=== PATIENT | male | born 1995 | race Caucasian/White ===

== ENCOUNTER 2016-12-17 17:58 | Emergency (ER) | payer OTHER ==
[~2016-12-17] VITALS: Ht 165.1 cm; Wt 61.2 kg
[~2016-12-17 17:58] MED LIST: IBUPROFEN 600600 M1 PO; KEFLEX500 MG PO; NORCO 5-325 TA1 EACH PO; TRAMADOL 50 MG50 MG PO
[2016-12-17] MEDS ORDERED: KEFLEX500 MG PO (19:28)
[2016-12-17 19:30] VITALS: BP 93/47
== END 2016-12-17 19:37 | disposition home or self-care (01) ==
LOC: ER 17:58
DX: S51.811A Laceration without foreign body of right forearm, initial encounter (principal); J45.909 Unspecified asthma, uncomplicated; W25.XXXA Contact with sharp glass, initial encounter; Y93.89 Activity, other specified; Y92.89 Other specified places as the place of occurrence of the external cause; Y99.8 Other external cause status

== ENCOUNTER 2019-01-20 05:21 | Inpatient (IN) | payer OTHER ==
[~2019-01-20] VITALS: Ht 175.3 cm; Wt 61.2 kg
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
[2019-01-20 05:54] VITALS: BP 110/59
[2019-01-20 06:43] LABS: ABSOLUTE NEUTROPHILS 11.7 thou/uL (1.4-8.2); BASOPHILS 0.7 % (0.0-2.0); EOSINOPHILS 0.4 % (0.0-3.0); HEMATOCRIT 43.6 % (42.0-52.0); HEMOGLOBIN 14.5 gm/dL (14.0-18.0); LYMPHOCYTES 18.6 % (24.0-44.0); MCH 30.5 pg (26.0-34.0); MCHC 33.3 g/dL (28.0-37.0); MCV 91.5 fL (80.0-100.0); PLATELET COUNT 384 thou/uL (150-400); POLYS 72.3 % (36.0-66.0); RBC 4.77 mil/uL (4.50-6.00); RDW 13.8 % (10.5-14.5); WBC 16.2 thou/uL (4.0-11.0)
[2019-01-20 06:48] LABS: AMP/METHAMP POSITIVE (Negative); BARBITURATES Negative (Negative); BENZODIAZEPINES Negative (Negative); COCAINE Negative (Negative); METHADONE Negative (Negative); OPIATES POSITIVE (Negative); PCP Negative (Negative)
[2019-01-20 06:50] LABS: CALCIUM 9.4 mg/dL (8.5-10.1); POTASSIUM 4.3 mmol/L (3.5-5.1)
[2019-01-20 06:56] LABS: ALBUMIN 3.8 g/dL (3.4-5.0); TOTAL BILIRUBIN 0.4 mg/dL (<0.1-1.0); TOTAL PROTEIN 8.6 g/dL (6.4-8.2)
--- NOTE | 2019-01-20 07:57 | NUR ---
VISIT SUMMARY PRINTED FOR PT/FAMILY PER THEIR REQUEST
[2019-01-20 10:54] VITALS: BP 98/57
[2019-01-20 11:00] VITALS: BP 102/58
[2019-01-20 11:47] VITALS: BP 107/56
[2019-01-20 14:50] VITALS: BP 113/64
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
--- NOTE | 2019-01-20 17:31 | NUR ---
PT A&OX4, VSS, PAIN IN RIGHT HAND. CELLULITIS IN RIGHT HAND. WOUND CARE NURSE PROVIDED DRESSING TODAY. PATIENT INFORMED THAT I&D WOULD BE POSTPONED FOR TOMORROW MORNING, PATIENT STATED TO THIS NURSE THAT HE DID NOT WANT TO STAY OVERNIGHT. THIS NURSE ENCOURAGED PATIENT TO STAY AND NOT TO LET HIS HAND GET WORSE. PATIENT STATED HE UNDERSTOOD AND STILL WANTED TO GO HOME. DOCTOR INFORMED OF PATIENTS DECISION, PT HAS SIGNED AGAINST MEDICAL ADVICE FORM, IV REMOVED, NO SIGNS OF DISTRESS. PATIENT DID NOT WANT WHEELCHAIR AND WALKED OUT ON HIS OWN.
--- NOTE | 2019-01-21 05:08 | NUR ---
CALL FROM LAB PT DISCHARGED 01/20/19 BLOOD CULTURES CAME BACK POSITIVE FOR GRAM POSITIVE COCCI. TEXT SENT TO SHYAM RAMOS TO HAVE HIMS CALL PT IN AM .
[2019-01-21 14:07] LABS: HAV IgM AB (ANTI-HAV IgM) Negative (Negative); HEPATITIS B SURFACE AG Negative (Negative); HEPATITIS C VIRUS AB >11.0 (0.0-0.9); HIV ANTIBODY Non Reactive (Non Reactive)
== END 2019-01-20 16:00 | disposition left against medical advice (07) | DRG 603 ==
LOC: ER 05:21 → EROBS 10:16 → 4W 11:00
PROVIDERS: Emergency Medicine; ADMIT Hospitalist
DX: L02.511 Cutaneous abscess of right hand (principal)
CPT/HCPCS: 10040

== ENCOUNTER 2021-01-21 20:29 | Emergency (ER) | payer OTHER ==
[~2021-01-21] VITALS: Ht 177.8 cm; Wt 66.2 kg
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
[2021-01-21 22:00] VITALS: BP 117/58
== END 2021-01-21 22:06 | disposition home or self-care (01) ==
LOC: ER 20:29
DX: T50.911A Poisoning by multiple unspecified drugs, medicaments and biological substances, accidental (unintentional), initial encounter (principal); J45.909 Unspecified asthma, uncomplicated; F19.10 Other psychoactive substance abuse, uncomplicated; F17.210 Nicotine dependence, cigarettes, uncomplicated; Y92.89 Other specified places as the place of occurrence of the external cause

== ENCOUNTER 2021-04-04 18:32 | Emergency (ER) | payer OTHER ==
[~2021-04-04] VITALS: Ht 170.2 cm; Wt 99.3 kg
[2021-04-04 19:49] VITALS: BP 96/61
--- NOTE | 2021-04-05 08:05 | EKG ---
[place] [address] [facility] [place] [place] [address] ELECTROCARDIOGRAM REPORT Name: INEZ HARTMANN Room #: [facility]#: [id number] Admission: 04/04/21 Attend Phys: Discharge: 04/04/21 Date of : [birth year] Report #: [id number] 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
== END 2021-04-04 19:51 | disposition left against medical advice (07) ==
LOC: ER 18:32
DX: R40.4 Transient alteration of awareness (principal); F19.10 Other psychoactive substance abuse, uncomplicated; J45.909 Unspecified asthma, uncomplicated